=== PATIENT | male | born 1985 | race Caucasian/White ===

== ENCOUNTER 2022-01-05 13:54 | Emergency (ER) | payer OTHER, SELFPAY ==
[2022-01-05 13:58] VITALS: BP 131/77; PULSE 88; RESP 20; TEMP 37; O2SAT 99
[2022-01-05 14:18] LABS: Basophils Percent Auto 0.7 % (0.2-1.2); Eosinophils Absolute Auto 0.5 K/mm3 (0-0.3); Eosinophils Percent Auto 8.1 % (0-4.4); Hematocrit 48.9 % (42.0-52.0); Hemoglobin 16.1 g/dL (14.0-18.0); Immature Granulocyte Absolute 0.02 K/mm3 (0.00-0.031); Immature Granulocyte Percent A 0.3 % (0-0.5); Lymphocytes Absolute Auto 1.31 K/mm3 (0.9-3.2); Lymphocytes Percent Auto 22.7 % (18.3-44.2); Mean Corpuscular HGB Conc 32.9 g/dl (32-36); Mean Corpuscular Hemoglobin 27.8 pg (26-34); Mean Corpuscular Volume 84.5 fl (80-100); Mean Platelet Volume 9.4 fl (7.4-10.4); Monocytes Absolute Auto 0.3 K/mm3 (0.1-0.6); Monocytes Percent Auto 5.5 % (2.6-8.5); Neutrophils Absolute Auto 3.6 K/mm3 (1.3-6.7); Neutrophils Percent Auto 62.7 % (45.5-73.1); Platelet Count Result 279 k/mm3 (150-375); Red Blood Count 5.79 M/mm3 (4.6-6.20); Red Cell Distribution Width 14.3 % (11.5-14.5); White Blood Count 5.8 K/mm3 (4.5-10.0)
[2022-01-05 14:23] LABS: Appearance Urine Clear (Clear); Bilirubin Urine Negative (Negative); Blood Urine Negative (Negative); Color Urine Yellow (Yellow); Glucose Urine UA Negative (Negative); Ketones Urine Negative (Negative); Leukocyte Esterase Ur Negative LEU/UL (Negative); Nitrate Urine Negative (Negative); Protein Urine Negative (Negative); Specific Grav Ur 1.015 (1.001-1.035); Urobilinogen Urine 0.2 mg/dL (<2.0); pH Urine 8.5 (5.0-9.0)
[2022-01-05 14:24] LABS: Add Urine Microscopic? NO
[2022-01-05 14:29] LABS: Alanine Aminotransferase 85 U/L (6-50); Albumin Level 4.9 g/dL (3.5-5.1); Alkaline Phosphatase 51 U/L (38-126); Anion Gap 8 mmol/L (8-16); Aspartate Amino Transferase 50 U/L (17-59); Bilirubin,Total 0.2 mg/dL (0.2-1.3); Blood Urea Nitrogen 8 mg/dL (9-20); Calcium 9.7 mg/dL (8.4-10.2); Carbon Dioxide 25 mmol/L (22-30); Chloride 106 mmol/L (98-107); Estimated CRCL calculation 109 ml/min; Estimated Glomerular Filt Rate > 60; Glucose 122 mg/dL (65-110); Lipase 50 U/L (23-300); Potassium 4.1 mmol/L (3.4-5.0); Sodium 139 mmol/L (137-145)
[2022-01-05] MEDS: SODIUM CHLORIDE 0.9% IV 1,000 ML 999 ML IV CONT (14:55)
--- NOTE | 2022-01-05 16:21 | ED.GENADULT ---
HPI - General Adult General Chief complaint: Nausea/Vomiting/Diarrhea Stated complaint: diarrhea x 3 weeks Time Seen by Provider: 01/05/22 14:19 History of Present Illness HPI narrative: Patient is a 36-year-old male who presents ER with diarrhea. Ongoing for 3 to 4 weeks. Variable amounts per day. Clear. He has not been on antibiotics. No recent travel. Has not been drinking from untreated water sources. No abdominal pain. No blood in his stool. Denies fevers or chills or sweats. No chest pain or chest pressure. Denies history of IBS or IBD. Related Data Allergies Allergy/AdvReac Type Severity Reaction Status Date / Time Sulfa (Sulfonamide Allergy Mild Verified 10/03/18 13:28 Antibiotics) Review of Systems Review of Systems: All systems reviewed & are unremarkable except as noted in HPI and below Constitutional: Constitutional: Denies chills, Denies fatigue and Denies fever(s) ENT: Denies nasal congestion and Denies sore throat Cardiovascular: Cardiovascular: Denies chest pain, Denies rapid heart rate and Denies radiating jaw, neck or arm pain Gastrointestinal: Gastrointestinal: Denies abdominal pain, Reports diarrhea, Denies nausea and Denies vomiting Comments: Occassional abdominal cramping PMFSH Past Medical History Medical History (Updated 01/05/22 @ 16:28 by Franko Shin MD) ADHD Anxiety Depression Surgical History Surgical History (Updated 01/05/22 @ 16:26 by Franko Shin MD) No pertinent past surgical history Social History Social History (Updated 01/05/22 @ 16:26 by Franko Shin MD) Smoking status: Never smoker Exam Narrative: GENERAL: Well-appearing, well-nourished, and in no acute distress. HEAD: Normocephalic, atraumatic. ENT: Mucous membranes moist. CHEST: Clear to auscultation. No respiratory distress. HEART: Regular rate and rhythm. Normal peripheral pulses. ABDOMEN: Soft, nontender, nondistended. EXTREMITIES: Normal range of motion. No edema. SKIN: Warm, dry, no rash. NEURO: Alert and oriented x3. PSYCH: Normal mood and affect. Course Course Emergency Course: Unremarkable evaluation. Discharge home. Recommend Imodium A-D as needed for diarrhea. Vital Signs Vital signs: Vital Signs Temperature 98.6 F 01/05/22 13:58 Pulse Rate 88 07/05/22 13:58 Respiratory Rate 20 01/05/22 13:58 Blood Pressure 131/77 01/05/22 13:58 Pulse Oximetry 99 01/05/22 13:58 Oxygen Delivery Room Air 01/05/22 13:58 Temperature 98.6 F 01/05/22 13:58 Pulse Rate 88 01/05/22 13:58 Respiratory Rate 20 01/05/22 13:58 Blood Pressure 131/77 01/05/22 13:58 Pulse Oximetry 99 01/05/22 13:58 Oxygen Delivery Room Air 01/05/22 13:58 Medical Decision Making Vital Signs Vital Signs: Vital Signs Temperature 98.6 F 01/05/22 13:58 Pulse Rate 88 01/05/22 13:58 Respiratory Rate 20 01/05/22 13:58 Blood Pressure 131/77 01/05/22 13:58 Pulse Oximetry 99 01/05/22 13:58 Oxygen Delivery Room Air 01/05/22 13:58 Temperature 98.6 F 01/05/22 13:58 Pulse Rate 88 01/05/22 13:58 Respiratory Rate 20 01/05/22 13:58 Blood Pressure 131/77 01/05/22 13:58 Pulse Oximetry 99 01/05/22 13:58 Oxygen Delivery Room Air 01/05/22 13:58 Lab Data Result diagrams: 01/05/22 14:05 01/05/22 14:05 Labs: Lab Results 01/05/22 01/05/22 01/05/22 Range/Units 14:05 14:05 14:06 WBC 5.8 (4.5-10.0) K/mm3 RBC 5.79 (4.6-6.20) M/mm3 Hgb 16.1 (14.0-18.0) g/dL Hct 48.9 (42.0-52.0) % MCV 84.5 (80-100) fl MCH 27.8 (26-34) pg MCHC 32.9 (32-36) g/dl RDW 14.3 (11.5-14.5) % Plt Count 279 (150-375) k/mm3 MPV 9.4 (7.4-10.4) fl Immature Gran % (Auto) 0.3 (0-0.5) % Neut % (Auto) 62.7 (45.5-73.1) % Lymph % (Auto) 22.7 (18.3-44.2) % [place] % (Auto) 5.5 (2.6-8.5) % Eos % (Auto) 8.1 H (0-4.4) % Baso % (Auto) 0.7 (0.2-1.2)
[2022-01-05 16:48] VITALS: PULSE 77; RESP 16; O2SAT 98
== END 2022-01-05 16:48 | disposition home or self-care (01) ==
PROVIDERS: Emergency Provider Emergency Medicine; PCP Internal Medicine
DX: R19.7 Diarrhea, unspecified (principal); F90.9 Attention-deficit hyperactivity disorder, unspecified type; F41.9 Anxiety disorder, unspecified; F32.9 Major depressive disorder, single episode, unspecified
CPT/HCPCS: 36415; 80053; 81003; 83690; 85025; 96360; 99283; J7030